=== PATIENT | male | born 1955 | race Caucasian/White ===

== ENCOUNTER → 2019-01-16 | Outpatient (CLI) | payer OTHER ==
[~2019-01-16] MED LIST: ASCO500T8 PO; ASPI325T17 PO; CHOL200074 PO; GLUC-121 PO; LISI-167 PO; MULT-658 PO; NAPR250T6 PO; OXYC5TAB2 PO; SIMV20TA3 PO; VITA400C43 PO
[2019-01-16 17:29] LABS: ALBUMIN 3.9 g/dL (3.4-5.0); BILIRUBIN, DIRECT 0.2 mg/dL (0.1-0.2); MICROSCOPIC NOT IND
[2019-01-16 17:55] LABS: BILIRUBIN,INDIRECT 0.2 mg/dL (0.0-2.0); BILIRUBIN,TOTAL 0.4 mg/dL (0.2-1.0)
[2019-01-16 18:09] LABS: FREE T4 (FREE THYROXINE) 0.55 ng/dL (0.76-1.46)
== END | disposition home or self-care (01) ==
LOC: LAB 16:47
PROVIDERS: ATTEND Orthopaedic Surgery
DX: I10 Essential (primary) hypertension (principal); R94.6 Abnormal results of thyroid function studies; D75.89 Other specified diseases of blood and blood-forming organs; R74.8 Abnormal levels of other serum enzymes
CPT/HCPCS: 36415; 80076; 81003; 82607; 82977; 84439; 84443; 86803

== ENCOUNTER → 2019-03-05 | Outpatient (CLI) | payer OTHER ==
[2019-03-05 07:55] LABS: CHOL/HDL RATIO 4.2
[2019-03-05 07:56] LABS: LDL/HDL RATIO 2.4 (0.5-3.0)
[2019-03-05 08:14] LABS: FREE T4 (FREE THYROXINE) 0.62 ng/dL (0.76-1.46)
== END | disposition home or self-care (01) ==
LOC: LAB 07:25
PROVIDERS: ATTEND Family Medicine
DX: R94.6 Abnormal results of thyroid function studies (principal)
CPT/HCPCS: 36415; 80061; 84439; 84443